=== PATIENT | male | born 1995 | race Caucasian/White ===

== ENCOUNTER 2019-08-01 14:46 | Emergency (ER) | payer BC ==
[~2019-08-01] VITALS: Ht 185.4 cm; Wt 83.9 kg
[2019-08-01 14:50] VITALS: BP 137/70
--- NOTE | 2019-08-01 14:58 | NUR ---
PATIENT AMBULATED TO BED 04
--- NOTE | 2019-08-01 14:58 | NUR ---
PATIENT AMBULATED STEADY GAIT TO BED 4.
--- NOTE | 2019-08-01 15:18 | NUR ---
FIBERGLASSER WAS BEDSIDE TO DO PHYSICAL EXAM.
[2019-08-01 15:46] VITALS: BP 124/75
== END 2019-08-01 15:45 | disposition home or self-care (01) ==
LOC: MED 14:46
DX: S16.1XXA Strain of muscle, fascia and tendon at neck level, initial encounter (principal); G44.209 Tension-type headache, unspecified, not intractable; F41.9 Anxiety disorder, unspecified; X58.XXXA Exposure to other specified factors, initial encounter; Y93.89 Activity, other specified; Y92.89 Other specified places as the place of occurrence of the external cause; Y99.8 Other external cause status
CPT/HCPCS: 99282